=== PATIENT | male | born 1995 | race Caucasian/White ===

== ENCOUNTER 2021-01-12 19:32 | Emergency (ER) | payer SELFPAY ==
[~2021-01-12] VITALS: Ht 170.2 cm; Wt 59.0 kg
[2021-01-12] MEDS ORDERED: ERYTHROMYCIN BASE 0.5% OPHTH OINT 3.5GM BOTHEYE ONE (20:30)
[2021-01-12] MEDS ORDERED: DIPHENHYDRAMINE 25MG CAPSULE PO ONE (20:30)
[2021-01-12] MEDS ORDERED: ERYT1OIN6 EACHEYE (20:53)
[2021-01-12 22:07] VITALS: BP 129/79
== END 2021-01-12 22:15 | disposition home or self-care (01) ==
LOC: ER 19:32
DX: H10.13 Acute atopic conjunctivitis, bilateral (principal); H10.023 Other mucopurulent conjunctivitis, bilateral; F12.10 Cannabis abuse, uncomplicated
CPT/HCPCS: 99283; Q0163